=== PATIENT | female | born 1990 ===

== ENCOUNTER 2016-09-05 14:55 | Emergency (ER) | payer OTHER ==
[~2016-09-05] VITALS: Ht 152.4 cm; Wt 57.0 kg
[2016-09-05 15:53] LABS: BASOPHILS % (AUTO) 0 % (0-2); EOSINOPHILS # (AUTO) 0.1 10^3uL; EOSINOPHILS % (AUTO) 1 % (0-4); LYMPHOCYTES # (AUTO) 2.6 X10^3; MEAN CORPUSCULAR HEMOGLOBIN 29.9 PG (26.0-34.0); MEAN CORPUSCULAR HGB CONC 34.9 g/dL (31.0-37.0); MEAN CORPUSCULAR VOLUME 86 FL (80-100); MEAN PLATELET VOLUME 10.3 FL (6.0-9.5); MONOCYTES % (AUTO) 10 % (3-11); NEUTROPHILS # (AUTO) 6.7 X10^3; NEUTROPHILS % (AUTO) 64 % (51-67); PLATELET COUNT 263 10^3uL (150-450); WHITE BLOOD COUNT 10.49 10^3uL (4.0-11.0)
[2016-09-05 16:01] LABS: ANION GAP 15.2 MEQ/L (3-15); MAGNESIUM* 2.2 mg/dL (1.6-2.3)
[2016-09-05 16:02] LABS: ALBUMIN 4.6 g/dL (3.4-5.0); CALCULATED IONIZED CALCIUM 3.6 mg/dL (3.8-4.6); TOTAL PROTEIN 8.5 g/dL (6.4-8.5)
[2016-09-05 16:06] LABS: BILIRUBIN,URINE Negative (Negative); COLOR,URINE Yellow; GLUCOSE, URINE (UA) Negative (Negative); LEUKOCYTE ESTERASE ,URINE Negative (Negative); PH,URINE 7.5 (5.0 - 8.0); UROBILINOGEN,URINE 0.2 mg/dL (0.2-1.0)
[2016-09-05 16:07] LABS: CLARITY,URINE Slightly Cloudy
[2016-09-05 16:08] LABS: AMPHETAMINE SCREEN, URINE Negative (Negative); CANNABINOID SCREEN, URINE Negative (Negative); METHAMPHETAMINE SCREEN URINE S NEGATIVE (NEGATIVE); OPIATE SCREEN URINE Negative (Negative); PROPOXYPHENE STAT NEGATIVE (NEGATIVE)
[2016-09-05 17:18] VITALS: BP 129/83
== END 2016-09-05 17:19 | disposition home or self-care (01) ==
LOC: ED 15:00
DX: R06.4 Hyperventilation (principal)
CPT/HCPCS: 36415; 80053; 80307; 81003; 82607; 82746; 83735; 84443; 84703; 85025; 86140; 99282; 99283